=== PATIENT | female | born 2000 | race Caucasian/White ===

== ENCOUNTER 2023-10-06 17:15 | Inpatient (IN) ==
[2023-10-06] MEDS ORDERED: Lidocaine 1% VIAL 10 MG/ML 30 ML VIAL INJ PRN (18:20)
[2023-10-06] MEDS ORDERED: Prochlorperazine 5 mg/ml 2 ml VIAL (10 mg) IV PRN (18:20)
[2023-10-06 19:08] LABS: ABS Eosinophils 0.1 10^3/uL (0.0-0.5); ABS Lymphocytes 2.2 10^3/uL (1.0-4.8); ABS Monocytes 0.5 10^3/uL (0.0-0.9); ABS Neutrophils 7.4 10^3/uL (1.5-7.6); ABS Nucleated RBC 0.01 10^3/ul; Eosinophil % 0.8 %; Hematocrit 30.3 % (35-45); Hemoglobin 10.3 g/dL (11.5-14.3); Lymphocyte % 21.5 %; Mean Corpuscular Hgb Conc 33.9 g/dL (31-36); Mean Corpuscular Volume 79.5 fL (80-97); Mean Platelet Volume 8.3 fL (7.5-11.2); Nucleated Red Blood Cells % 0.1 %/100WBC (0.0-0.8); Platelet Count 279 10^3/uL (150-450); Red Blood Count 3.81 10^6/uL (3.63-4.92); Red Cell Distribution Width 14.1 % (12-17); White Blood Count 10.2 10^3/uL (3.8-11.8)
[2023-10-06] MEDS: Buffered Lidocaine 1% SYRIN 1 ml INTRADERM ONE (19:32)
[2023-10-06 19:41] LABS: Urine Creatinine Concentration 29.07 mg/dL (20.00-320.00); Urine TP Concentration 10 mg/dL; Urine TP Creat Ratio 0.34 mg/mg
[2023-10-06 19:43] LABS: Albumin 3.4 g/dL (3.2-5.2); Albumin/Globulin Ratio 1.4 (1-3); Calcium 9.3 mg/dL (8.6-10.3); Creatinine, Serum 0.68 mg/dL (0.51-0.95); Globulin 2.4 g/dL (2-4); Total Bilirubin 0.3 mg/dL (0.2-1.0); Total Protein 5.8 g/dL (6.4-8.9); eGFR CKD-EPI 123.9 (>60)
[2023-10-06 19:48] LABS: Urine Benzodiazepine Screen None Detected (None Detect); Urine Opiates Screen None Detected (None Detect)
[2023-10-06] MEDS: Dinoprostone 10 MG VAG.SUPP VAGINAL ONE (20:30)
[2023-10-07] MEDS ORDERED: Morphine 10 MG/ML VIAL (1 ml) IV ONE (08:51)
[2023-10-07] MEDS: Morphine 10 MG/ML VIAL (1 ml) IV ONE ×2 (09:42→23:00)
[2023-10-07] MEDS: Prochlorperazine 5 mg/ml 2 ml VIAL (10 mg) IV ONE (09:43)
[2023-10-07] MEDS: miSOPROStol 100 mcg TAB PO ONE (13:16)
[2023-10-07 13:17] LABS: Uric Acid 5.1 mg/dL (2.3-6.6)
[2023-10-07] MEDS: Lactated Ringers 1000 ml BAG 1,000 ML IV SCH (18:08)
[2023-10-07] MEDS: Oxytocin in LR 20,000 MILLI.UNIT/1,000 ML BAG IV SCH (18:13)
[2023-10-07] MEDS: fentaNYL 100 mcg/2 ml 50 MCG/ML VIAL IV SLOW PU ONE (19:52)
[2023-10-07 21:45] LABS: ABS Eosinophils 0.1 10^3/uL (0.0-0.5); ABS Lymphocytes 2.1 10^3/uL (1.0-4.8); ABS Monocytes 0.7 10^3/uL (0.0-0.9); ABS Neutrophils 8.8 10^3/uL (1.5-7.6); ABS Nucleated RBC 0.01 10^3/ul; Eosinophil % 0.8 %; Hematocrit 32.7 % (35-45); Hemoglobin 10.8 g/dL (11.5-14.3); Mean Corpuscular Hemoglobin 26.1 pg (27-33); Mean Corpuscular Hgb Conc 32.9 g/dL (31-36); Mean Corpuscular Volume 79.3 fL (80-97); Mean Platelet Volume 8.4 fL (7.5-11.2); Nucleated Red Blood Cells % 0.1 %/100WBC (0.0-0.8); Platelet Count 281 10^3/uL (150-450); Red Blood Count 4.12 10^6/uL (3.63-4.92); Red Cell Distribution Width 14.4 % (12-17); White Blood Count 11.8 10^3/uL (3.8-11.8)
[2023-10-07 21:50] LABS: Albumin 3.5 g/dL (3.2-5.2); Albumin/Globulin Ratio 1.3 (1-3); Calcium 8.8 mg/dL (8.6-10.3); Creatinine, Serum 0.61 mg/dL (0.51-0.95); Globulin 2.6 g/dL (2-4); Potassium 3.8 mmol/L (3.5-5.0); Total Bilirubin 0.3 mg/dL (0.2-1.0); Total Protein 6.1 g/dL (6.4-8.9); eGFR CKD-EPI 127.2 (>60)
[2023-10-07] MEDS: Prochlorperazine 5 mg/ml 2 ml VIAL (10 mg) IV PRN (23:00)
[2023-10-08] MEDS: Lactated Ringers 1000 ml BAG 1,000 ML IV ONE (06:31)
[2023-10-08] MEDS: Lidocaine 1.5% EPI 1:200,000 30 ML SDV ONE (12:00)
[2023-10-08] MEDS: OBEPIDURAL (200 ML) 200 ML EPIDURAL SCH (12:00)
[2023-10-08] MEDS: Lactated Ringers 1000 ml BAG 1,000 ML IV SCH (12:00)
[2023-10-08] MEDS ORDERED: Sodium Citrate/Citric Acid LIQ 15 ML UDC PO PRN (12:45)
[2023-10-08] MEDS ORDERED: Lactated Ringers 1000 ml BAG 1,000 ML IV ONE (12:45)
[2023-10-08] MEDS ORDERED: Phenylephrine 40 mcg/mL 10mL (400mcg) SYRINGE IV PUSH PRN ×2 (12:45)
[2023-10-08 14:28] LABS: Urine Appearance Clear; Urine Bilirubin Negative (Negative); Urine Blood Negative (Negative); Urine Color Colorless; Urine Glucose Negative (Negative); Urine Ketones Negative (Negative); Urine Nitrite Negative (Negative); Urine Protein Negative (Negative); Urine Specific Gravity 1.006 (1.002-1.030); Urine Urobilinogen Negative (Negative); Urine pH 6.5 (5.0-8.0)
[2023-10-08] MEDS ORDERED: Bupivacaine 0.25% SDV 30 ML ONE (19:25)
[2023-10-08] MEDS: Oxytocin 10 UNITS/ML 1 ML VIAL IM ONE (23:12)
[2023-10-08] MEDS ORDERED: Lactated Ringers 1000 ml BAG 1,000 ML IV SCH (23:45)
[2023-10-08] MEDS ORDERED: Witch Hazel PAD JAR TOPICAL PRN (23:54)
[2023-10-08] MEDS ORDERED: Glycerin ADULT 2.4 gm SUPP PR PRN (23:54)
[2023-10-08] MEDS ORDERED: Dibucaine 1% OINT 28.35 GM TUBE PR PRN (23:54)
[2023-10-09] MEDS: OBEPIDURAL (200 ML) 200 ML EPIDURAL ONE (05:23)
[2023-10-09 06:23] LABS: ABS Lymphocytes 2.2 10^3/uL (1.0-4.8); ABS Monocytes 1.2 10^3/uL (0.0-0.9); ABS Neutrophils 19.6 10^3/uL (1.5-7.6); ABS Nucleated RBC 0.01 10^3/ul; Hematocrit 28.2 % (35-45); Hemoglobin 9.6 g/dL (11.5-14.3); Lymphocyte % 9.7 %; Mean Corpuscular Hemoglobin 27.3 pg (27-33); Mean Corpuscular Volume 80.3 fL (80-97); Mean Platelet Volume 8.1 fL (7.5-11.2); Nucleated Red Blood Cells % 0.1 %/100WBC (0.0-0.8); Platelet Count 237 10^3/uL (150-450); Red Blood Count 3.51 10^6/uL (3.63-4.92); Red Cell Distribution Width 14.7 % (12-17)
[2023-10-10 08:36] VITALS: BP 120/65
[2023-10-10] MEDS: Varicella Virus Vaccine Live 0.5 ML VIAL SUBCUT ONE (13:43)
== END 2023-10-10 13:30 | disposition home or self-care (01) | DRG 560 ==
LOC: MCHOBOUT 17:15 → MCHOB 18:09
PROVIDERS: ADMIT Registered Nurse; ATTEND Registered Nurse